=== PATIENT | male | born 1975 | race African-American/Black ===

== ENCOUNTER 2024-02-07 23:11 | Emergency (ER) | payer OTHER ==
[2024-02-07 23:18] VITALS: TEMP 98.5; BMI 25.8
[2024-02-07 23:28] LABS: BASO % 0.3 % (0-2.0); HEMATOCRIT 47.1 % (35.4-49); HEMOGLOBIN 15.9 GM/dL (11.7-16.9); MCH 28.9 pg (25.7-33.7); MCHC 33.8 g/dl (32.0-35.9); MEAN CELL VOLUME 85.4 fl (80-96); MEAN PLT VOLUME 7.6 fl (7.5-11.1); MONO % 5.8 % (3.8-10.2); NEUT % 77.9 % (42.8-82.8); PLATELET COUNT 324 10^3/uL (134-434); RBC 5.51 M/mm3 (4.00-5.60); RDW 14.6 % (11.9-15.9); WHITE BLOOD COUNT 8.9 K/mm3 (4.0-10.0)
[2024-02-07 23:33] LABS: INR 0.98 (0.83-1.09); PROTHROMBIN TIME (PATIENT) 11.3 SEC (9.7-13.0)
[2024-02-07 23:36] LABS: ACTIVATED PTT 35.3 SECONDS (25.2-36.5)
[2024-02-07 23:37] LABS: CALCIUM 8.7 mg/dL (8.5-10.1)
[2024-02-07 23:38] LABS: ALBUMIN 3.6 g/dl (3.4-5.0); BLOOD UREA NITROGEN 10.6 mg/dL (7-18); MAGNESIUM 1.9 mg/dL (1.8-2.4)
[2024-02-07 23:41] LABS: BILIRUBIN,TOTAL 0.4 mg/dL (0.2-1)
[2024-02-07 23:42] LABS: TOT PROT 7.8 g/dl (6.4-8.2)
[2024-02-08] MEDS ORDERED: morphine SULFATE 4 MG/ML VIAL ONE ×2 (00:24→01:38)
[2024-02-08 00:30] VITALS: RESP 17
[2024-02-08] MEDS: morphine CARPU-JECT 4 MG/1 ML DISP.SYRIN IVPUSH ONE ×2 (00:30→01:44)
[2024-02-08 01:45] VITALS: BP 112/80; PULSE 65
== END 2024-02-08 02:48 | disposition home or self-care (01) ==
LOC: JER 23:11
PROC: 3E033NZ Introduction of Analgesics, Hypnotics, Sedatives into Peripheral Vein, Percutaneous Approach (ICD-10-PCS; principal; 2024-02-08)
PROC: 3E033NZ Introduction of Analgesics, Hypnotics, Sedatives into Peripheral Vein, Percutaneous Approach (ICD-10-PCS; 2024-02-08)
DX: S11.93XA Puncture wound without foreign body of unspecified part of neck, initial encounter (principal); W22.8XXA Striking against or struck by other objects, initial encounter; Z20.822 Contact with and (suspected) exposure to COVID-19
CPT/HCPCS: 0241U-QW; 36415; 70496-TC; 70498-TC; 71045-TC-FY; 80053; 83735; 85025; 85610; 85730; 93005; 93010; 99285-25; Q9967